=== PATIENT | male | born 1975 | race Caucasian/White ===

== ENCOUNTER 2018-06-08 16:51 | Inpatient (IN) | payer BC, SELFPAY ==
[2018-06-08] MEDS ORDERED: QUEtiapine FUMARATE 100 MG TAB PO (23:15)
[2018-06-08] MEDS ORDERED: LORazepam 2 MG TAB PO (23:15)
[2018-06-08] MEDS ORDERED: MOM 30ML SUSPENSION UDC PO (23:15)
[2018-06-08] MEDS ORDERED: LORazepam 1 MG TAB PO (23:15)
[2018-06-08] MEDS ORDERED: ACETAMINOPHEN TAB 650MG DOSE (2X325MG) PO (23:15)
[2018-06-09] MEDS: QUEtiapine FUMARATE 50 MG TAB PO ×4 (00:44→21:25)
[2018-06-09] MEDS ORDERED: THIAMINE 100 MG TAB PO (09:00)
[2018-06-09] MEDS ORDERED: MULTIVITAMINS/MINERALS THERAP 1 TAB PO (09:00)
[2018-06-09] MEDS ORDERED: FOLIC ACID 1 MG TAB PO (09:00)
[2018-06-10] MEDS: QUEtiapine FUMARATE 50 MG TAB PO ×4 (10:18→20:41)
[2018-06-10] MEDS: DOXYCYCLINE HYCLATE 100 MG TAB PO ×2 (12:21→20:41)
[2018-06-11] MEDS: QUEtiapine FUMARATE 50 MG TAB PO ×4 (08:27→22:03)
[2018-06-11] MEDS: DOXYCYCLINE HYCLATE 100 MG TAB PO ×2 (08:27→22:03)
[2018-06-11 11:27] LABS: ALBUMIN 4.1 GM/DL (3.2-5.2); ALBUMIN/GLOBULIN RATIO 1.21 (1.00-1.93); ALKALINE PHOSPHATASE 80 U/L (45-117); ALT/SGPT 56 U/L (12-78); AST/SGOT 27 U/L (7-37); BILIRUBIN,DIRECT 0.2 MG/DL (0.0-0.2); BILIRUBIN,TOTAL 0.7 MG/DL (0.2-1.0); TOTAL PROTEIN 7.5 GM/DL (6.4-8.2)
[2018-06-11] MEDS: LORazepam 2 MG TAB PO (15:27)
[2018-06-11] MEDS: HALOPERIDOL 5 MG TAB PO (15:27)
[2018-06-12] MEDS: QUEtiapine FUMARATE 50 MG TAB PO ×3 (08:51→17:53)
[2018-06-12] MEDS: DOXYCYCLINE HYCLATE 100 MG TAB PO ×2 (08:51→21:31)
[2018-06-12 10:58] LABS: HEPATITIS B SURFACE ANTIGEN NEGATIVE (NEGATIVE)
[2018-06-12 11:24] LABS: HEPATITIS C VIRUS ABY INDEX 0.1 INDEX (<0.8)
[2018-06-12 11:25] LABS: HEPATITIS B CORE ANTIBODY IGM NEGATIVE (NEGATIVE)
[2018-06-12 11:26] LABS: HEPATITIS A ANTIBODY IGM NEGATIVE (NEGATIVE)
[2018-06-12] MEDS: QUEtiapine FUMARATE 200 MG TAB PO (21:31)
[2018-06-12] MEDS: traZODone 50 MG TAB PO (21:31)
[2018-06-12] MEDS: MAALOX 30 ML SUSP *UDC PO (22:03)
[2018-06-13] MEDS: MAALOX 30 ML SUSP *UDC PO (07:55)
[2018-06-13] MEDS: DOXYCYCLINE HYCLATE 100 MG TAB PO (08:28)
[2018-06-13] MEDS: QUEtiapine FUMARATE 50 MG TAB PO ×2 (08:28→12:19)
[2018-06-13] MEDS: LORazepam 2 MG TAB PO (11:17)
== END 2018-06-13 17:10 | disposition home or self-care (01) | DRG 753 ==
LOC: M ED 16:51 → M PSY 06-09 00:45 → M ED INP 23:03
PROVIDERS: Psychiatry & Neurology Psychiatry
DX: F31.2 Bipolar disorder, current episode manic severe with psychotic features (principal); F12.90 Cannabis use, unspecified, uncomplicated; L73.1 Pseudofolliculitis barbae